=== PATIENT | male | born 1965 | race Two or more races ===

== ENCOUNTER 2022-08-11 02:14 | Emergency (ER) | payer OTHER ==
[~2022-08-11] VITALS: Ht 165.1 cm; Wt 96.2 kg
--- NOTE | 2022-08-11 02:20 | NUR ---
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 PATIENT IS AOX4. ABLE TO MAKE NEEDS KNOWN. JUST HAD HEART SX LAST 07/06/22 AND LAST WEEK WENT TO [facility] FOR SAME REASON. PATIENT IS ATTACHED TO MONITOR AND VITALS CHECKED.
--- NOTE | 2022-08-11 02:30 | NUR ---
PT SEEMS TO BE ANXIOUS. DURING NURSING ASSESSMENT, PT CLAIMED THAT HE FEELS WINDED WHENEVER HE TAKES METOPROLOL AND CANNOT SLEEP AT NIGHT CAUSE HE FELT LIKE HE IS DROWNING. PT IS ALSO USING CPAP MACHINE AT HOME. AUSCULTATION DONE, BILATERAL LUNG GAY ARE CLEAR. DESPITE HIS RECENT SURGERY, PT CONTINUOUS TO LIVE HIS ACTIVE LIFE. HE FEELS MOST WINDED EVERY LATE IN AFTERNOON AFTER HE DOES HIS SWIMMING AND GOLFING. ENCOURAGE PT TO TAKE THINGS SLOW AT THE MOMENT, SET APPOINTMENT WITH HIS PERSONAL DIRECTOR OF PUBLICATIONS AND TO EXPRESS ABOUT HIS CONCERNS WITH REGARDS TO HIS MEDICATIONS, CPAP MACHINE AND SLEEPLESSNESS AT NIGHT FOR FEAR THAT HE WILL NOT WAKE UP. AFTER HAVING HEART ATTACK, HE IS SCARED THAT HE MIGHT HAVE ANOTHER AT NIGHT AND NOBODY CAN HELP HIM. PT LIVES ALONE.
--- NOTE | 2022-08-11 03:57 | NUR ---
HEALTH EQUIPMENT SERVICER AT PT'S BEDSIDE
[2022-08-11 04:21] LABS: BASOPHILS # (AUTO) 0.1 K/uL (0.0-0.2); BASOPHILS % (AUTO) 0.7 % (0.0-2.0); EOSINOPHILS % (AUTO) 2.9 % (0.0-6.0); HEMATOCRIT 37 % (39-51); HEMOGLOBIN 12.1 g/dL (13.5-17.5); LYMPHOCYTES # (AUTO) 1.9 K/uL (0.8-4.8); LYMPHOCYTES % (AUTO) 21.9 % (20.0-44.0); MEAN CORPUSCULAR HGB CONC 33 g/dl (31.0-36.0); MEAN CORPUSCULAR VOLUME 97 fL (80-96); MONOCYTES % (AUTO) 11.4 % (2.0-12.0); NEUTROPHILS # (AUTO) 5.4 K/uL (1.8-8.9); NEUTROPHILS % (AUTO) 63.1 % (43.0-81.0); PLATELET COUNT (AUTO) 113 K/uL (150-450); WHITE BLOOD COUNT (AUTO) 8.6 K/uL (4.3-11.0)
[2022-08-11 04:31] LABS: CALCIUM, SERUM 8.7 mg/dL (8.5-10.1); CARBON DIOXIDE 25 mmol/L (21-32); CHLORIDE 108 mmol/L (98-107); CREATININE 0.6 mg/dL (0.6-1.3); GLUCOSE 108 mg/dL (74-106); POTASSIUM 3.8 mmol/L (3.5-5.1); SODIUM SERUM 140 mmol/L (136-145); UREA NITROGEN, BLOOD 15 mg/dL (7-18)
[2022-08-11 04:44] LABS: ALANINE AMINOTRANSFERASE 76 U/L (12-78); ALBUMIN 3.1 g/dL (3.4-5.0); ALKALINE PHOSPHATASE 122 U/L (46-116); ASPARTATE AMINOTRANSFERASE 41 U/L (15-37); BILIRUBIN,DIRECT 0.1 mg/dL (0.0-0.2); BILIRUBIN,TOTAL 0.7 mg/dL (0.2-1.0); TOTAL PROTEIN, SERUM 7.2 g/dL (6.4-8.2)
[2022-08-11] MEDS ORDERED: ASPIRIN 325 MG TABLET ONE (05:26)
[2022-08-11] MEDS ORDERED: ASPIRIN 325 MG TABLET PO ONE (05:30)
--- NOTE | 2022-08-11 05:33 | NUR ---
COVID SWAB DONE AND SENT TO LAB
--- NOTE | 2022-08-11 06:50 | NUR ---
PAGED GUEVARA LOYOLAP
--- NOTE | 2022-08-11 07:58 | NUR ---
GUEVARA MARTINEZ CALLED SPEAKING WITH DR ANDERSON.
[2022-08-11] MEDS ORDERED: NITROGLYCERIN PACKET 1 GM PACKET TD ONE (08:00)
[2022-08-11] MEDS ORDERED: NITROGLYCERIN PACKET 1 GM PACKET ONE (08:32)
--- NOTE | 2022-08-11 09:03 | NUR ---
iv established. L HAND 20G
--- NOTE | 2022-08-11 10:40 | NUR ---
CALLED [facility] [phone] GOING TO [place] AWAITING BED ASSIGNMENT. PER BLAKE
--- NOTE | 2022-08-11 12:42 | NUR ---
PT GOING TO [facility] UNDER DR GARCIA GOING TO [id number] NUMBER FOR REPORT [phone], [facility] ETA [id number]
--- NOTE | 2022-08-11 13:21 | NUR ---
REPORT GIVEN TO AZRA BO
--- NOTE | 2022-08-11 15:00 | NUR ---
TRANSPORT PICKED UP THE PATIENT
[2022-08-11 16:04] VITALS: BP 111/69
[2022-08-15] MEDS ORDERED: LORAZEPAM 1 MG TABLET ONE (00:56)
== END 2022-08-11 15:00 | disposition short-term general hospital (02) ==
LOC: EDBD 02:16 → ER 02:16
DX: R07.9 Chest pain, unspecified (principal); I10 Essential (primary) hypertension; Z88.8 Allergy status to other drugs, medicaments and biological substances; Z60.2 Problems related to living alone; Z20.822 Contact with and (suspected) exposure to COVID-19
CPT/HCPCS: 99291; 87426; 93005; 71045; 85025; 80048; 80076; 36415; 84484 ×2; 83880; A4223; C9803

== ENCOUNTER 2024-05-01 21:52 | Emergency (ER) | payer BC, OTHER ==
[~2024-05-01] VITALS: Ht 165.1 cm; Wt 91.2 kg
[2024-05-01 22:54] VITALS: TEMP 98
[2024-05-01] MEDS: TDAP [DIPH/PERTUSSIS/TET] 0.5 ML VIAL IM ONE (23:30)
[2024-05-01] MEDS ORDERED: GELATIN SPONGE,ABSORBABLE 1 SPONGE SPONGE TP ONE (23:34)
[2024-05-02 01:19] VITALS: BP 148/79; O2SAT 98
== END 2024-05-02 01:19 | disposition home or self-care (01) ==
LOC: ER 22:01
DX: S61.213A Laceration without foreign body of left middle finger without damage to nail, initial encounter (principal); I10 Essential (primary) hypertension; Z79.82 Long term (current) use of aspirin; W26.8XXA Contact with other sharp object(s), not elsewhere classified, initial encounter; Y93.89 Activity, other specified; Y92.89 Other specified places as the place of occurrence of the external cause; Y99.8 Other external cause status
CPT/HCPCS: 99283; 73130; A6403